=== PATIENT | female | born 1995 | race Caucasian/White ===

== ENCOUNTER → 2025-05-26 | Outpatient (CLI) | payer BC ==
[~2025-05-26] MED LIST: IOHEXOL-300 50 ML BOTTLE IV ONE
== END | disposition home or self-care (01) ==
LOC: RAD 07:44
DX: N97.9 Female infertility, unspecified (principal); Z31.41 Encounter for fertility testing
CPT/HCPCS: 84702; 36415; 74740; 58340; Q9967; Z7610